=== PATIENT | male | born 1945 | race Caucasian/White ===

== ENCOUNTER 2019-05-16 15:53 | Observation (INO) | payer MEDICARE ==
[~2019-05-16] VITALS: Ht 175.3 cm; Wt 102.1 kg
[2019-05-16 17:02] LABS: BASOPHILS # (AUTO) 0.1 (0.0-0.1); BASOPHILS % 0.7 % (0.0-1.0); EOSINOPHILS # (AUTO) 0.2 (0.0-0.4); EOSINOPHILS % 2.9 % (0.0-6.0); HEMATOCRIT 44.7 % (38.2-49.6); HEMOGLOBIN 14.4 g/dL (14.0-18.0); LYMPHOCYTES # (AUTO) 2.3 (1.0-3.2); LYMPHOCYTES % 33.5 % (18.0-39.1); MEAN CORPUSCULAR HEMOGLOBIN 28.4 pg (28-32); MEAN CORPUSCULAR HGB CONC 32.2 g/dL (31-35); MEAN CORPUSCULAR VOLUME 88.2 fL (81-99); MONOCYTES # (AUTO) 0.5 (0.2-0.8); MONOCYTES % 7.7 % (4.4-11.3); NEUTROPHILS # (AUTO) 3.7 (2.1-6.9); NEUTROPHILS % 54.3 % (38.7-80.0); PLATELET COUNT 236 x10e3/uL (140-360); RED BLOOD COUNT 5.07 x10e6/uL (4.3-5.7); RED CELL DISTRIBUTION WIDTH 14.2 % (11.7-14.4)
[2019-05-16 17:06] LABS: INR 0.92; PARTIAL THROMBOPLASTIN TIME 27.5 seconds (23.8-35.5); PROTHROMBIN TIME 12.8 seconds (11.9-14.5)
[2019-05-16 17:16] LABS: ALANINE AMINOTRANSFERASE 25 IU/L (0-55); ALBUMIN/GLOBULIN RATIO 1.3 (0.8-2.0); ALKALINE PHOSPHATASE 77 IU/L (40-150); ANION GAP 15.4 mmol/L (8-16); BLOOD UREA NITROGEN 12 mg/dL (7-26); BUN/CREATININE RATIO 13 (6-25); CALCIUM 9.4 mg/dL (8.4-10.2); CARBON DIOXIDE 24 mmol/L (22-29); CHLORIDE 104 mmol/L (98-107); CREATINE KINASE 212 IU/L (30-200); CREATININE, SERUM 0.91 mg/dL (0.72-1.25); EST GLOMERULAR FILTRATION RATE > 60 ML/MIN (60-); GLUCOSE 99 mg/dL (74-118); POTASSIUM 3.4 mmol/L (3.5-5.1); SODIUM 140 mmol/L (136-145)
--- NOTE | 2019-05-16 17:35 | Diagnostic Imaging Report ---
EXAMINATION: CHEST SINGLE (PORTABLE) INDICATION: Chest pain, syncope COMPARISON: None FINDINGS: TUBES and LINES: EKG leads overlie the chest. LUNGS: The lung volumes are normal. No focal consolidation or pulmonary edema. PLEURA: No pleural effusion or pneumothorax. HEART AND MEDIASTINUM: The cardiomediastinal silhouette is normal in size and contour. BONES AND SOFT TISSUES: No acute fracture or dislocation. UPPER ABDOMEN: No free air under the diaphragm. IMPRESSION: No focal pneumonia or pulmonary edema. Signed by: Shamika Benjamin MD on 05/16/2019 5:32 PM
--- NOTE | 2019-05-16 18:04 | Diagnostic Imaging Report ---
History:Passed out today. Unknown if hit head. Comparison studies:None Technique: Axial images were obtained from the skull base to the vertex. Coronal and sagittal images reconstructed from the axial data. Intravenous contrast: None Dose modulation, iterative reconstruction, and/or weight based adjustment of the mA/kV was utilized to reduce the radiation dose to as low as reasonably achievable. Findings: Scalp/skull: No abnormalities. Extra-axial spaces: No masses. No fluid collections. Brain sulci: Age-appropriate. Ventricles: Age-appropriate. No hydrocephalus. Parenchyma: Few hypodensities in the supratentorial white matter are small vessel ischemic changes. No masses, hemorrhage, acute or chronic cortical vascular insults. Sellar/suprasellar region: No abnormalities. Craniocervical junction: Patent foramen magnum. No Chiari one malformation. Incidental findings: Atherosclerotic calcifications in the carotid siphons . Impression: No acute abnormalities. Chronic findings: 1. Age-appropriate volume loss. 2. Mild supratentorial white matter small vessel ischemic changes. Signed by: DR Lamont Jose M.D. on 05/16/2019 6:00 PM
[2019-05-16] MEDS ORDERED: IRBESARTAN300 MG PO (18:57)
[2019-05-16] MEDS ORDERED: ATORVASTATIN CA40 MG PO (18:57)
[2019-05-16 19:02] LABS: BILIRUBIN,URINE NEGATIVE (NEGATIVE); CLARITY,URINE SL CLOUDY (CLEAR); COLOR,URINE YELLOW (YELLOW); KETONES,URINE NEGATIVE (NEGATIVE); LEUKOCYTE ESTERASE ,URINE NEGATIVE (NEGATIVE); NITRITE,URINE NEGATIVE (NEGATIVE); PROTEIN,URINE DIPSTICK TRACE (NEGATIVE); URINE UROBILINOGEN 0.2 mg/dL (0.2 - 1)
[2019-05-16 19:14] LABS: AMORPHOUS SEDIMENT,URINE MODERATE (FEW); BACTERIA,URINE MODERATE /HPF; MUCUS,URINE MODERATE (RARE)
--- OUTSIDE RECORDS SUMMARY | 2019-05-16 19:57 | XMS REPORT ---
Author [facility] Address Unknown Phone Unavailable Care Team Providers Care Centralized Traffic Control Operator Name Role Phone Gregory GRAY Unavailable Unavailable Problems This patient has no known problems. Allergies, Adverse Reactions, Alerts This patient has no known allergies or adverse reactions. Medications This patient has no known medications. Results Test Description Test Time Test Comments Text Results Atomic Results Result Comments CT BRAIN WO 2019-05-16 17:56:00 [place] [address] Patient Name: OSEAS WOOD MR #: [id number] : 1945 Age/Sex: 74/M Req #: [id number] Adm Physician: Ordered by: LUCIANO MCCARTNEY MD Report #: [id number] Location: ER Room/Bed: Procedure: [id number] CT/CT BRAIN WO Exam Date: 05/16/19 Exam Time: 1725 REPORT STATUS: Signed History:Passed out today. Unknown if hit head. Comparison studies:None Technique: Axial images were obtained from the skull base to the vertex. Coronal and sagittal images reconstructed from the axial data. Intravenous contrast: None Dose modulation, iterative reconstruction, and/or weight based adjustment of the mA/kV was utilized to reduce the radiation dose to as low as reasonably achievable. Findings: Scalp/skull: No a bnormalities. Extra-axial spaces: No masses. No fluid collections. Brain sulci: Age-appropriate. Ventricles: Age-appropriate. No hydrocephalus. Parenchyma: Few hypodensities in the supratentorial white matter are small vessel ischemic changes. No masses, hemorrhage, acute or chronic cortical vascular insults. Sellar/suprasellar region: No abnormalities. Craniocervical junction: Patent foramen magnum. No Chiari one malformation. Incidental findings: Atherosclerotic calcifications in the carotid siphons . Impression: No acute abnormalities. Chronic findings: 1. Age- appropriate volume loss. 2. Mild supratentorial white matter small vessel ischemic changes. Signed by: DR Lamont Jose M.D. on 05/16/2019 6:00 PM Dictated By: LAMONT BLACKMAN MD 1800 Transcribed By: MCKENNA on 05/16/19 1800 COPY TO: LUCIANO MCCARTNEY MD CHEST SINGLE (PORTABLE) 2019-05-16 17:30:00 [place] [address] Patient Name: OSEAS WOOD MR #: [id number] : 1945 Age/Sex: 74/M Req #: [id number] Adm Physician: Ordered by: LUCIANO MCCARTNEY MD Report #: [id number] Location: ER Room/Bed: Procedure: [id number] DX/CHEST SINGLE (PORTABLE) Exam Date: 05/16/19 Exam Time: 1720 REPORT STATUS: Signed EXAMINATION: CHEST SINGLE (PORTABLE) INDICATION: Chest pain, syncope COMPARISON: None FINDINGS: TUBES and LINES: EKG leads overlie the chest. LUNGS: The lung volumes are normal. No focal consolidation or pulmonary edema. PLEURA: No pleural effusion or pneumothorax. HEART AND MEDIASTINUM: The cardiomediastinal silhouette is normal in size and contour. BONES AND SOFT TISSUES: No acute fracture or dislocation. UPPER ABDOMEN: No free air under the diaphragm. IMPRESSION: No focal pneumonia or pulmonary edema. Signed by: Mercedez Benjamin MD on 05/16/2019 5:32 PM Dictated By: MERCEDEZ BENJAMIN MD 173 Transcribed By: MCKENNA on 05/16/191731 COPY TO: LUCIANO MCCARTNEY MD
[2019-05-16] MEDS ORDERED: POTASSIUM CHLORIDE 20 MEQ TAB CR PO ONE (20:00)
[2019-05-16] MEDS ORDERED: ONDANSETRON HCL INJ 2MG/ML 2ML 2 MG/ML VIAL IV PRN (20:00)
[2019-05-16] MEDS ORDERED: SODIUM CHLORIDE FLUSH 10 ML SYR INJ PRN (20:00)
[2019-05-16] MEDS: SODIUM CHLORIDE 0.9% 1000ML 1,000 ML IV SCH ×2 (20:22→22:03)
[2019-05-16 21:29] VITALS: BP 136/76
[2019-05-16] MEDS: ATORVASTATIN 40 MG TAB PO SCH (22:03)
[2019-05-16 22:30] LABS: CREATINE KINASE 177 IU/L (30-200)
[2019-05-17] VITALS (8 sets, daily range): BP systolic 115–153; BP diastolic 68–94
[2019-05-17 05:41] LABS: BASOPHILS # (AUTO) 0.1 (0.0-0.1); BASOPHILS % 0.8 % (0.0-1.0); EOSINOPHILS # (AUTO) 0.2 (0.0-0.4); EOSINOPHILS % 3.2 % (0.0-6.0); HEMATOCRIT 41.9 % (38.2-49.6); HEMOGLOBIN 13.4 g/dL (14.0-18.0); LYMPHOCYTES # (AUTO) 1.5 (1.0-3.2); LYMPHOCYTES % 21.1 % (18.0-39.1); MEAN CORPUSCULAR HEMOGLOBIN 28.9 pg (28-32); MEAN CORPUSCULAR VOLUME 90.5 fL (81-99); MONOCYTES # (AUTO) 0.8 (0.2-0.8); MONOCYTES % 11.3 % (4.4-11.3); NEUTROPHILS # (AUTO) 4.5 (2.1-6.9); NEUTROPHILS % 62.6 % (38.7-80.0); PLATELET COUNT 219 x10e3/uL (140-360); RED BLOOD COUNT 4.63 x10e6/uL (4.3-5.7); RED CELL DISTRIBUTION WIDTH 14.2 % (11.7-14.4)
--- NOTE | 2019-05-17 07:22 | NUR ---
Rcvd patient in report this am. Patient is asleep in bed at this time. No s/s of distress noted. Spouse at bedside
[2019-05-17 07:33] LABS: ALANINE AMINOTRANSFERASE 20 IU/L (0-55); ALBUMIN 3.5 g/dL (3.5-5.0); ALBUMIN/GLOBULIN RATIO 1.3 (0.8-2.0); ALKALINE PHOSPHATASE 69 IU/L (40-150); BLOOD UREA NITROGEN 12 mg/dL (7-26); BUN/CREATININE RATIO 12 (6-25); CALCIUM 9.1 mg/dL (8.4-10.2); CARBON DIOXIDE 27 mmol/L (22-29); CHLORIDE 107 mmol/L (98-107); CREATININE, SERUM 1.01 mg/dL (0.72-1.25); EST GLOMERULAR FILTRATION RATE > 60 ML/MIN (60-); GLUCOSE 94 mg/dL (74-118); SODIUM 141 mmol/L (136-145)
[2019-05-17 07:40] LABS: CREATINE KINASE MB 3.8 ng/mL (0-5.0)
[2019-05-17] MEDS: IRBESARTAN 150 MG TAB PO SCH (08:16)
--- NOTE | 2019-05-17 08:49 | Consultation ---
DATE OF CONSULTATION: 05/17/2019 Cardiology Consultation REASON FOR CONSULTATION: Syncope. HISTORY OF PRESENT ILLNESS: Mr. Argueta is a 74-year-old gentleman with history of hypertension, hypercholesteremia, GERD, positive family history of coronary artery disease, and remote history of rheumatic fever as a child at the age of 8. He at baseline is relatively healthy with comorbidities well controlled. He has had previous cardiovascular evaluation, which has all been negative. 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 He went over to a client's house for notary reasons and while sitting on a stool, the patient started to feel dizziness. Symptoms progressed and became diaphoretic, lightheaded, and then he ended up passing out, falling off the stool, landing on the floor. Luckily, he had not injured himself, however, still continued to feel dizzy. He got up and knew that he still was not quite feeling right and then had a second passing-out episode. After he woke up from the second episode, they called 911 and was brought here for further care and management. Within minutes, he was back to normal. There is no loss of bowel or bladder function. No seizure or shaking like events noted. Thus far, the patient has had enzymes, which have been strongly negative x2. He denies any chest pain or discomfort. No known triggers. PAST MEDICAL HISTORY: 1. Hypertension, essential. 2. Hypercholesteremia. 3. 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 4. History of rheumatic fever at the age of 8. PAST SURGICAL HISTORY: 1. History of right total knee replacement in July of 2018. 2. History of left total knee replacement in 2011. 3. History of bilateral carpal tunnel surgery. 4. History of tonsillectomy. 5. History of multiples various other orthopedic surgeries. FAMILY HISTORY: Mother at the age of 60, had a heart disease. Father at 87 with heart issues. He has had a brother in his 60s with five heart attacks and an uncle with CABG in his 80s. SOCIAL HISTORY: He is a lifelong nonsmoker. Denies any alcohol or illicit drug use. ALLERGIES: NO KNOWN DRUG ALLERGIES. HOME MEDICATIONS: Include irbesartan 300 mg daily, atorvastatin 40 mg daily. REVIEW OF SYSTEMS: GENERAL: Denies any fevers, chills, or any weight changes. HEENT: No headaches, visual complaints, sore throat, or stuffy nose. RESPIRATORY: Denies any pleuritic chest pain, shortness of breath, cough or wheezing. CARDIOVASCULAR: Denies any chest pain or discomfort. No orthopnea or PND. No subjective palpitations. Syncope as above. GI: Denies any bright red blood per rectum, melena, or hematemesis. Did have some nausea with a lightheaded spell and does have a history of GERD. : Denies any dysuria, pyuria, or hematuria. MUSCULOSKELETAL: Positive for arthritis in his back and knees. HEMATOLOGY: Denies any easy bruising or bleeding. ID: Denies any infectious issues. NEUROLOGIC: Syncope as above. Denies any focal weakness, numbness, tingling, seizures, headache, history of TIA or stroke. Remainder review of systems negative, otherwise as mentioned. PHYSICAL EXAMINATION: VITAL SIGNS: Height of 69 inches, weight of 225 pounds, BMI is 33.2, temperature of 96.8, pulse 60, respiratory rate 18, blood pressure 125/68, O2 saturation 97% on room air. GENERAL: This is a well-nourished, well-developed gentleman, who is currently in no apparent distress. HEENT: Normocephalic, atraumatic. Pupils are equal, round, and reactive to light. Extraocular movements are intact. Oropharynx is clear. NECK: No elevation of jugular venous pulsation. No carotid bruits. CARDIOVASCULAR: Regular rate and rhythm. Normal S1, S2. Soft 1/6 systolic murmur at the left lower sternal border. LUNGS: Clear to auscultation bilaterally. Good air entry. ABDOMEN: Soft, nontender, nondistended. Normoactive bowel sounds. There is a midline abdominal wall hernia. BACK: No costovertebral angle tenderness. EXTREMITIES: Warm with 2+ bilateral radial pulses, 2+ bilateral dorsalis pedis and posterior tibialis pulse. There is trace right leg edema. There are bilateral total knee replacement scars. NEUROLOGIC: Cranial nerves 2 through 12 are intact. Strength is 5/5. Grossly nonfocal. PSYCH: Normal fluent speech. Appropriate affect. No anxiety or delusions. LABORATORY DATA: Reviewed. White count of 7.2, hemoglobin 13.4, hematocrit 41.9, platelets of 219. Sodium 141, potassium 5.0, chloride 107, bicarb 27, BUN 12, creatinine 1.01, glucose of 94, calcium of 9.1, AST 16, ALT 20, alkaline phosphatase 69, total protein of 6.2, albumin of 3.5. Troponin went from less than 0.001, to 0.001 to 0.001 with normal MB. BNP is 25.2, INR 0.92. Chest x-ray is unremarkable. Brain CT shows mild supratentorial white matter small vessel ischemic changes. EKG: Sinus rhythm with incomplete right bundle-branch block and no ST-T wave changes. DIAGNOSES: 1. Syncope: By history, seems most likely vasovagal in origin with unclear trigger. 2. Hypertension, essential. 3. Hypercholesteremia. 4. Positive remote history of rheumatic fever. 5. Family history of coronary artery disease. PLAN/RECOMMENDATIONS: 1. From a cardiovascular standpoint, we will continue monitoring on telemetry to see if there are any arrhythmias by history. The patient denies any subjective palpitations or any prior history of arrhythmias. 2. We will check echocardiogram to evaluate structure and function of heart. 3. We will follow up on carotid duplex to evaluate flow to his brain. 4. Resume activity as tolerated. 5. Risk factor modification, medical therapy. 6. Advised the patient that he may benefit from ischemic risk stratification. Depending on the patient's preference, may need to do it as an outpatient. MD DARRELL Higgins/SANTOS /[id number]
[2019-05-17] MEDS ORDERED: NON-FORMULARY MEDICATION (Atorvastatin Calcium 40 MG) PO SCH (09:00)
[2019-05-17] MEDS ORDERED: NON-FORMULARY MEDICATION (Irbesartan 300 MG) PO SCH (09:00)
--- NOTE | 2019-05-17 09:00 | NUR ---
Patient is AAOx3. Patient resting in bed. Patient has no c/o pain at this time. No dizziness noted. Lung andrew clear to auscultation. Bowel sounds present x4. No edema noted. Patient has been up ambulating to the bathroom and has no s/s of distress noted. Left hand IV in place. IV fluids infusing.
[2019-05-17 14:05] LABS: CREATINE KINASE MB 3.1 ng/mL (0-5.0)
[2019-05-17] MEDS: SODIUM CHLORIDE 0.9% 1000ML 1,000 ML IV SCH (15:47)
[2019-05-17] MEDS ORDERED: ALPRAZOLAM 0.5 MG TAB PO NR (16:00)
--- NOTE | 2019-05-17 17:39 | Diagnostic Imaging Report ---
History: Passed out one day ago Comparison studies: CT head 05/16/2019 Technique: Sagittal T2; axial DWI, FLAIR, MPGR, T1, Coronal FLAIR. Intravenous contrast: None Findings: Scalp: Normal in signal . No masses . Bone marrow: Normal in signal intensity. Extra-axial: No masses, no fluid collections. Brain sulci: Appropriate for age. Ventricles: Normal in size . No hydrocephalus . Parenchyma: Scattered small T-2/flair hyperintensities of the periventricular and deep white matter, nonspecific and most commonly seen with mild chronic microvascular ischemic changes No masses, hemorrhage, acute or chronic vascular insults. Suprasellar region: No abnormalities. Craniocervical junction: No abnormalities. Patent foramen magnum. No Chiari one malformation. Vessels: Normal flow-voids in the arteries and sinuses. Mucosal thickening of the bilateral maxillary sinuses IMPRESSION: 1. No acute abnormalities. 2. Mild chronic microvascular ischemic changes of the white matter. Signed by: DR Lamont Jose M.D. on 05/17/2019 5:36 PM
--- NOTE | 2019-05-17 18:30 | History and Physical ---
CHIEF COMPLAINT: Collapse. HISTORY OF PRESENT ILLNESS: This is a 74-year-old male with past medical history of hypertension, hyperlipidemia, acid reflux, positive history of coronary artery disease, who came into the ED after he had a syncopal episode that occurred at a [facility]. The patient reports that he noticed that he has not been drinking enough fluids at home and while he was at the office, he became very diaphoretic, lightheaded and then he passed out. He fell to the ground, woke up and had another syncopal episode as well. Luckily, he did not injure himself. Prior to these episodes, he felt like he was lightheaded and dizzy, but denies any chest pain or palpitations. There were no reports of any seizure-like activity, any weakness, any neurological deficits or any other issues. The patient was then brought in by EMS for further evaluation. There were no reports of any loss of bowel or bladder dysfunction. The patient otherwise has been seen and evaluated at bedside. Currently, he is doing well with no other issues at this time. REVIEW OF SYSTEMS: Pertinent positives: Syncopal episode. Pertinent negatives: Denies any palpitation, nausea, vomiting, diarrhea, dysuria, hematuria, frequency, urgency, lightheadedness, dizziness, abdominal pain, headaches, shortness of breath, cough, congestion, fever, or any other complaints. The rest of the 14-point review of systems has been reviewed with the patient and are negative. ALLERGIES: NO KNOWN DRUG ALLERGIES. HOME MEDICATIONS: Just irbesartan 300 mg daily, atorvastatin 40 mg daily. PAST MEDICAL HISTORY: Hypertension, hyperlipidemia, degenerative joint disease in the knees, history of rheumatic fever at age 8. PAST SURGICAL HISTORY: 1. Right total knee replacement in July 2018, left total knee replaced in 2011. 2. History of bilateral carpal tunnel surgery. 3. Tonsillectomy. 4. Multiple various other orthopedic surgeries. FAMILY HISTORY: Mother at age 60 with heart disease. Father at age 87 with hear issues. There are some other siblings, they have heart attacks as well as uncles. PHYSICAL EXAMINATION: VITAL SIGNS: Temperature is 96.9, pulse 64, respiratory rate is 18, blood pressure 120/60, pulse ox 95% on room air. GENERAL: Not in acute distress. Alert and oriented x3. Cooperative on examination. HEENT: Head; normocephalic, atraumatic. Eyes; pupils are equal, round, and reactive to light bilaterally. Extraocular movements intact bilaterally. Throat; no evidence of erythema or exudates in the posterior pharynx. Has poor dentition. NECK: Supple. Good range of motion. PULMONARY: Clear to auscultation bilaterally. No wheezing, rales, rhonchi, or crackles appreciated. CARDIOVASCULAR: Positive S1 and S2. No murmurs, rubs, or gallops appreciated. ABDOMEN: Soft, nondistended, and nontender to palpation. Bowel sounds present. MUSCULOSKELETAL: Strength is 5/5 throughout. No evidence of any muscle deficits on examination. No weakness appreciated. NEUROLOGIC: Cranial nerve II through XII grossly intact. No evidence of any neurological deficits on exam. SKIN: Intact. Warm to touch. Good cap refill. PSYCHIATRIC: Normal affect and mood. EXTREMITIES: No edema. Good range of motion throughout. LAB FINDINGS: White count 7.2, hemoglobin for 13.4, hematocrit is 42, platelets of 219. Coagulation is normal. Chemistry; sodium 141, potassium 5, chloride 107, bicarb 27, anion gap of 10, BUN is 12, creatinine is 1, glucose is 94, calcium is 9.1. LFTs were normal. Troponins were all negative. BNP 25. Total protein 6.2, albumin is 3.5. Urinalysis seems to be negative. IMAGING STUDIES: Chest x-ray, no focal pneumonia or pulmonary edema. CT brain was also negative. Carotid ultrasound shows no evidence of any internal carotid stenosis. IMPRESSION: 1. Syncopal episode, unknown etiology, could be secondary to vasovagal in nature. 2. History of hypertension. 3. Hyperlipidemia. 4. Morbid obesity. PLAN: At this time, there is no obvious findings of infection or any obvious findings of mechanical fall leading to his syncopal episode. It seems like he was just standing there, concurrently he collapsed. He denies any prodromal events that occurred. At this time, Cardiology evaluated the patient and they would like to continue the patient on telemetry for now. His cardiac enzymes are negative. A 2D echo is pending. Carotid ultrasound was found to be negative. We will go ahead and consult with Neurology. Go ahead and order an MRI of the brain to complete the syncopal workup. I ordered the MRI of the brain stat, so it can occur tomorrow in the morning and the patient can be discharged after evaluation by Neurology. I discussed the plan of care with the nursing staff as well. We are going to resume same home medications with no changes. We will continue to monitor overnight. I discussed overall plan of care with the patient, with his present at bedside and they verbalized understanding. MD TUSHAR Kiran/SANTOS /[id number]
[2019-05-17] MEDS: ATORVASTATIN 40 MG TAB PO SCH (20:03)
[2019-05-18 05:19] VITALS: BP 119/75
--- NOTE | 2019-05-18 07:12 | NUR ---
Rcvd patient in report this am. Patient is in bathroom at this time. No s/s of distress noted.
[2019-05-18 08:00] VITALS: BP 134/71
[2019-05-18] MEDS: IRBESARTAN 150 MG TAB PO SCH (08:24)
[2019-05-18 08:29] VITALS: BP 134/71
--- NOTE | 2019-05-18 09:12 | NUR ---
Attempted to call Dr. doherty regarding EEG orders and unable to get through on the phone. Will attempt to call and confirm if EEG is for today
[2019-05-18 11:37] VITALS: BP 142/67
--- NOTE | 2019-05-18 13:55 | NUR ---
Removed IV from left hand. Pressure dressing applied.
--- NOTE | 2019-05-18 14:20 | NUR ---
Patient discharged from facility to home. Patient assisted out via staff. Reviewed all discharge paperwork, follow up appts and no RX's needed. Patient informed to f/u with PCP
--- NOTE | 2019-05-18 15:30 | Discharge Summary ---
FINAL DISCHARGE DIAGNOSES: 1. Syncopal episode likely to be vasovagal in nature and also underlying dehydration. 2. Hypertension. 3. Hyperlipidemia. 4. Morbid obesity. CONSULTANTS: Cardiology and Neurology. PHYSICAL EXAMINATION: VITAL SIGNS: Temperature is 96.8, pulse 66, respiratory rate is 20, blood pressure 142/67, and pulse ox 100% on room air. LAB FINDINGS: Show white count 7.2, hemoglobin 13.4, hematocrit 42, platelets of 290. Coagulation; PT 12, INR 0.92, PTT 27. Chemistry; sodium 141, potassium 5, chloride 107, bicarb 27, anion gap of 12, BUN is 12, creatinine is 1, glucose is 94, calcium 9.1. Total bilirubin 0.9, AST is 16, ALT 20, alkaline phosphatase 69. Troponins were negative. BNP 25. Albumin 3.5. Urinalysis showed evidence of underlying dehydration. MICROBIOLOGY: None. IMAGING STUDIES: Chest x-ray was found to be negative. CT brain was also negative. MRI of the brain was negative. EEG was negative. Carotid ultrasound negative. HOSPITAL COURSE: A gentleman is a 74-year-old male presented to the ER with underlying syncopal episode that occurred at a local [facility]. The patient was brought in via EMS. Further workup was performed. He was admitted under observation. Cardiology and Neurology were consulted. From a cardiac standpoint, the patient's carotid ultrasound was found to be negative. A 2D echo showed no acute findings. Cardiac enzymes were negative. EKG showed no acute findings and there was no loss on cardiac telemetry. The patient was cleared for discharge by Cardiology, but we will need an outpatient cardiac stress testing at a later date. Neurology was consulted as well for further management and care. MRI of the brain negative. CT brain negative. EEG was performed, found to be negative. The patient was cleared for discharge by both Neurology and Cardiology. On the day of discharge, the patient was doing well back to normal baseline. On the day of discharge, vital signs were stable. Labs reviewed and stable. The patient seen and evaluated, examined thoroughly on the day of discharge. No other complaints. The patient verbalized understanding and agreed to plan of care to follow up as an outpatient with the primary care physician in 1 week and black top paver operator and neurologist in 2 weeks' time. MEDICATIONS: See med reconciliation form. DISPOSITION: Home. CONDITION: Stable. DIET: Heart healthy. In the event of any worsening symptoms, the patient was advised to come back to the ED for further evaluation. Discharge summary took greater than 35 minutes. MD TUSHAR Kiran/SANTOS /[id number]
--- NOTE | 2019-05-19 20:11 | Electroencephalogram ---
DATE OF STUDY: 05/18/2019 REQUESTING PHYSICIAN: PROCEDURE: EEG. TECHNIQUE: An 18 channels of 20-minute EEG recording utilizing [employer] 10/20 system done today. EEG data was digitally acquired and analyzed. BACKGROUND ACTIVITY: Background rhythm consisted of regulated 9 hertz of waveforms, . ACTIVATION: . Sleep, awake, and drowsy. IMPRESSION: Normal EEG. No focal, lateralized, or epileptiform features are noted. Zoe Carbajal MD AM/MODAnyi /[id number]
--- NOTE | 2019-05-20 01:12 | Consultation ---
DATE OF CONSULTATION: 05/18/2019 HISTORY OF PRESENT ILLNESS: A 74-year-old male admitted with syncopal spells. The patient apparently multiple times. No convulsions. No seizure activity. No loss of bowel or bladder habits and no tongue biting. Neurology consultation possible epilepsy. He had MRI brain as well as EEG, which were both unremarkable. PAST MEDICAL HISTORY: Per chart. MEDICATIONS: Per chart. REVIEW OF SYSTEMS: A 14-point review of systems is unremarkable otherwise. SOCIAL HISTORY: Denies any unusual habits. PAST SURGICAL HISTORY: Noncontributory. FAMILY HISTORY: Noncontributory. PHYSICAL EXAMINATION: VITAL SIGNS: Temperature 98, respiratory rate 16, pulse rate 80, and blood pressure 121/60. HEAD AND NECK: Neck supple. No bruits. LUNGS: Clear. ABDOMEN: Soft. EXTREMITIES: Good pulses. HEART: Normal heart sounds. NEUROLOGIC: Alert and oriented and follows commands. . Gait is normal. ASSESSMENT: Syncopal episodes does not seem epileptic, unremarkable EEG and MRI brain. Recommend cardiac workup underway. No antiepileptic medications at this time. The patient was advised about the precautions to be taking and he was advised against driving until clear by his primary care physician. We will follow up with his primary care physician. Cardiology is working up for his syncope. Zoe Carbajal MD AM/SANTOS /[id number]
== END 2019-05-18 14:18 | disposition home or self-care (01) ==
LOC: ER 16:03 → ERHOLD 19:54 → MED/SURG 21:09
PROVIDERS: ADMIT Internal Medicine; ATTEND Internal Medicine
DX: R55 Syncope and collapse (principal); E86.0 Dehydration; I10 Essential (primary) hypertension; Z82.49 Family history of ischemic heart disease and other diseases of the circulatory system; E78.5 Hyperlipidemia, unspecified; K21.9 Gastro-esophageal reflux disease without esophagitis; I25.10 Atherosclerotic heart disease of native coronary artery without angina pectoris; Z96.653 Presence of artificial knee joint, bilateral; E66.01 Morbid (severe) obesity due to excess calories; Z68.33 Body mass index [BMI] 33.0-33.9, adult; E78.00 Pure hypercholesterolemia, unspecified
CPT/HCPCS: 36415 ×2; 70450; 70551; 71045; 80053 ×2; 81001; 82550 ×2; 82553 ×2; 83880; 84484 ×2; 85025 ×2; 85610; 85730; 93005; 93306; 93880; 95812; 99284; G0378 ×3; J7030